=== PATIENT | female | born 1965 | race Caucasian/White ===

== ENCOUNTER → 2016-07-11 | Outpatient (CLI) | payer OTHER | LOC: RAD 14:14 | PROVIDERS: ATTEND Internal Medicine Gastroenterology | DX: R14.0 Abdominal distension (gaseous) (principal); R10.11 Right upper quadrant pain | CPT/HCPCS: 74177; 82565 ==

== ENCOUNTER 2019-01-11 13:52 | Day surgery (SDC) | payer OTHER ==
[2018-12-31 10:12] LABS: ABSOLUTE LYMPHOCYTES (AUTO) 1.6 10^3/uL (0.5-4.7); ABSOLUTE MONOCYTES (AUTO) 0.3 10^3/uL (0.1-1.4); ABSOLUTE NEUT (AUTO) 3.2 10^3/uL (1.7-8.2); BASOPHILS % (AUTO) 0.6 % (0-2); EOSINOPHILS % (AUTO) 0.8 % (0-6); HEMATOCRIT 34.7 % (36.0-47.0); HEMOGLOBIN 11.5 g/dL (12.0-15.5); MEAN CORPUSCULAR HEMOGLOBIN 27.5 pg (27.0-33.4); MEAN CORPUSCULAR HGB CONC 33.2 g/dL (32.0-36.0); MEAN CORPUSCULAR VOLUME 83 fl (80-97); MONOCYTES % (AUTO) 6.2 % (3-13); PLATELET COUNT 170 10^3/uL (150-450); RED BLOOD COUNT 4.19 10^6/uL (3.72-5.28); RED CELL DISTRIBUTION WIDTH 16.2 % (11.5-14.0); SEGMENTED NEUTROPHILS % (AUTO) 61.4 % (42-78); TOTAL CELLS COUNTED % (AUTO) 100 %; WHITE BLOOD COUNT 5.2 10^3/uL (4.0-10.5)
[2018-12-31 10:30] LABS: ANION GAP 11 (5-19); BLOOD UREA NITROGEN 22 mg/dL (7-20); CALCIUM 9.7 mg/dL (8.4-10.2); CARBON DIOXIDE 23 mmol/L (22-30); CHLORIDE 107 mmol/L (98-107); GLUCOSE 77 mg/dL (75-110)
[~2019-01-11 13:52] MED LIST: CEFAZOLIN SODIUM 2 GM in DEXTROSE 5%-WATER 100 ML IV PRN; DEXAMETHASONE SOD PHOSPHATE INJ 4 MG/1 ML VIAL ONE; FENTANYL CITRATE INJ/PF 100 MCG/2 ML AMPUL ONE; MIDAZOLAM 2 MG/2 ML INJ ONE; ONDANSETRON HCL INJ/PF 4 MG/2 ML SDV ONE; PROPOFOL INJ 200 MG/20 ML VIAL IV ONE
[2019-01-11] MEDS ORDERED: BUPIVACAINE HCL 0.5 % INJ/PF 30 ML SDV ONE (16:03)
[2019-01-11] MEDS ORDERED: LIDOCAINE 1% INJ-PF (10 MG/ML) 30 ML SDV ONE (16:03)
[2019-01-11] MEDS ORDERED: RINGERS SOLUTION,LACTATED 1,000 ML IV ONE (16:30)
[2019-01-11] MEDS ORDERED: FENTANYL CITRATE INJ/PF 100 MCG/2 ML AMPUL ONE ×3 (16:36→18:05)
[2019-01-11] MEDS ORDERED: MIDAZOLAM 2 MG/2 ML INJ ONE (16:36)
[2019-01-11] MEDS ORDERED: PROPOFOL INJ 200 MG/20 ML VIAL IV ONE (16:36)
[2019-01-11] MEDS ORDERED: LIDOCAINE 0.5% INJ-PF (5 MG/ML) 50 ML SDV ONE (16:37)
[2019-01-11] MEDS ORDERED: LIDOCAINE 1% INJ (10 MG/ML) 10 ML MDV INJ ONE (17:27)
[2019-01-11] MEDS ORDERED: FENTANYL CITRATE INJ/PF 100 MCG/2 ML AMPUL IV PRN ×3 (17:34)
[2019-01-11] MEDS ORDERED: OXYCODONE-ACETAMINOPHEN 5-325 MG TABLET PO PRN ×3 (17:34→17:58)
[2019-01-11] MEDS ORDERED: DIPHENHYDRAMINE HCL 50 MG/ML VIAL IV PRN (17:34)
[2019-01-11] MEDS ORDERED: PROMETHAZINE HCL INJ 25 MG/1 ML VIAL IV PRN ×2 (17:34)
[2019-01-11] MEDS ORDERED: MEPERIDINE HCL/PF INJ 25 MG/1 ML DISP.SYRIN IV PRN (17:34)
[2019-01-11] MEDS ORDERED: ONDANSETRON HCL INJ/PF 4 MG/2 ML SDV IV PRN ×2 (17:34→17:58)
[2019-01-11] MEDS ORDERED: MORPHINE SULFATE 10 MG/ML INJ IV PRN (17:34)
--- NOTE | 2019-01-11 17:58 | Discharge Summary ---
Discharge Summary (SDC) - Discharge Final Diagnosis: Right wrist ganglion cyst Date of Surgery: 01/11/19 Discharge Date: 01/11/19 Condition: Good Treatment or Instructions: Schedule Follow Up w/ Dr. Sebastien Coates @ [facility] for Surgery to be seen in 10-14 days or as scheduled [place]: [place]: [place]: Ice and elevate Keep splint clean/dry/intact, do not remove. If your fingers become numb please unwrap the [place] wrap but leave the splint in place, if the sensation does not return within 30 minutes please return to the emergency department. May begin finger range of motion attempting to make full fist. Please use ibuprofen (Motrin or Advil) 600-800 mg every 8 hours as needed for pain or fever DO NOT TAKE w/ TORADOL may use once TORADOL complete. You may also use acetaminophen (Tylenol) 1000 mg every 4-6 hours as needed for pain or fever. Please be aware that many medications contain acetaminophen, do not exceed a total of 1000 mg of acetaminophen every 6 hours. If ibuprofen and acetaminophen are not sufficient for your pain you may take the Percocet/[place]. Please be aware that the Percocet/[place] does contain Tylenol. Stool softener of choice when on pain medication. USE OF MRLZ-MCL-DGEYAYE IBUPROFEN: Ibuprofen (Advil, Nuprin, Medipren, Motrin IB) is a medication for fever and pain control. In addition, it has anti- inflammatory effects which may be beneficial, especially in the treatment of injuries. It's best to take ibuprofen with food. Persons with ulcer disease or allergy to aspirin should notify their physician of this before taking ibuprofen. Ibuprofen can be given every four to six hours, for a total of four doses daily. Age Pain or fever dose Antiinflammatory dose 6-8 yr 200 mg (1 tab) 200 mg (1 tab) 9-11 yr 200 mg (1 tab) 200-400 mg (1-2 tab) 11-14 yr 200-400 mg (1-2 tab) 400 mg (2 tab) 15-adult 400 mg (2 tab) 600 mg (3 tab) ORAL NARCOTIC MEDICATION: You have been given a prescription for pain control. This medication is a narcotic. It's best taken with food, as nausea can result if taken on an empty stomach. Don't operate machinery or drive within six hours of taking this medication. Do not combine this medicine with alcohol, or with any medication which can cause sedation (such as cold tablets or sleeping pills) unless you get permission from the physician. Narcotics tend to cause constipation. If possible, drink plenty of fluids and eat a diet high in fiber and fruits. Please be aware that prescription narcotics also have the potential for abuse. People become addicted to these medications because of the general sense of wellbeing that they induce. This feeling along with a significant reduction in tension, anxiety, and aggression provides a stimulating seductive quality to these drugs. Once your pain is under control, we encourage you to discard your unused narcotics. Prescriptions: Oxycodone HCl/Acetaminophen [Percocet 5-325 mg Tablet] 1 tab PO Q6 PRN #15 tab PRN Reason: Referrals: MERCEDES HAMPTON MD [Primary Care Provider] - Discharge Diet: As Tolerated Respiratory Treatments at Home: Deep Breathing/Coughing, Incentive Spirometer Discharge Activity: No Lifting Over 10 Pounds, No Lifting/Push/Pulling Report the Following to Your Physician Immediately: Fever over 101 Degrees, Unusual Bleeding, Redness, Swelling, Warmth
--- NOTE | 2019-01-11 18:00 | Operative Report ---
Operative Report DATE OF SURGERY: 01/11/19 PREOPERATIVE DIAGNOSIS: Left wrist volar ganglion POSTOPERATIVE DIAGNOSIS: Same OPERATION: Excision left wrist volar ganglion SURGEON: IVAN DELEON ANESTHESIA: LMAC COMPLICATIONS: None ESTIMATED BLOOD LOSS: Minimal PROCEDURE: Indication for above procedure: 53-year-old female with a volar ganglion cyst of her left wrist. We discussed findings on physical examination treatment options at that point decision was made to proceed with operative intervention. Risk and benefits were explained patient verbalized understanding consented for surgical procedure. Procedure In Detail: Patient was seen and evaluated in the preoperative holding area. The LEFT upper extremity was initialized and marked. Patient received 2g of Ancef IV for bacterial prophylaxis. Patient was taken back to the operative room where transferred to the operative table and placed under anesthesia. Once they were adequately anesthetized a nonsterile tourniquet was placed on the upper extremity. A surgical team debriefing was performed ensuring all instrumentation was available, the surgical procedure was discussed with possible concerns reviewed. 10 cc of 1% lidocaine with injected. The upper extremity was prepped with chlorhexidine and alcohol and draped in a sterile fashion. A timeout was done identifying correct patient, procedure and extremity everyone in attendance agree with this and verbalized no concerns. The extremity was elevated the tourniquet was inflated to 250 mmHg. Longitudinal skin incision was made along the volar-radial aspect of the wrist. Blunt dissection was performed meticulous dissection of the radial artery was undertaken and the radial artery was retracted. After retraction of the radial artery deep cyst was noted ending from the STT joint volarly deep to the pronator quadratus musculature. The cyst was isolated proximally distally and removed down to its root. The capsular tissue was debrided and root of the cyst coagulated with bipolar cautery. Wound was then copiously irrigated with normal saline. Tourniquet was deflated patient had intact radial artery with normal skin turgor and capillary refill. Any peripheral bleeding was controlled with bipolar cautery until the wound was dry. Skin was closed with running subcuticular 4-0 Monocryl reinforced with Dermabond Steri-Strips. Patient was placed in a volar resting splint. Sponge counts, instrument counts, needle counts were correct. Patient was then awoken from anesthesia. Transferred from the operating room table to the operating room stretcher. There was no intraoperative complications patient tolerated procedure well stable to PACU. Postop plan: Patient follow-up the office in 2 weeks at which point we will discuss results and begin range of motion exercises.
[2019-01-11] MEDS ORDERED: OXYCODONE-ACETAMINOPHEN 5-325 MG TABLET ONE (18:32)
--- NOTE | 2019-01-11 19:09 | EKG REPORT ---
SEVERITY:- NORMAL ECG - SINUS RHYTHM : Confirmed by: Lion Antunez MD 11-Jan-2019 19:08:48
[2019-01-11 19:48] VITALS: BP 150/80
== END 2019-01-11 19:35 | disposition home or self-care (01) ==
LOC: OROUT 13:52
PROVIDERS: ATTEND Orthopaedic Surgery
DX: M67.431 Ganglion, right wrist (principal); Z79.899 Other long term (current) drug therapy; Z79.51 Long term (current) use of inhaled steroids; F17.210 Nicotine dependence, cigarettes, uncomplicated; I10 Essential (primary) hypertension
CPT/HCPCS: 36415; 85025; 80048; 88304 ×2; 93005; 93010; 25111; J2250; J3490 ×3; J0690; J3010; J7060; J2704; J1100; J2405

== ENCOUNTER → 2019-10-26 | Outpatient (CLI) | payer OTHER ==
--- NOTE | 2019-10-26 15:14 | RADIOLOGY REPORT (SQ) ---
EXAM DESCRIPTION: SMALL BOWEL SERIES IMAGES COMPLETED DATE/TIME: 10/26/2019 10:34 am REASON FOR STUDY: E61.1 IRON DEFICIENCY E61.1 IRON DEFICIENCY COMPARISON: None. FLUOROSCOPY TIME: 1.0 minutes 2 images submitted to PACS. LIMITATIONS: None. PROCEDURE: Initial gear changer image of abdomen acquired, followed by administration of oral contrast. Se rial radiographic images acquired. Fluoroscopic images recorded of the terminal ileum and other mike cated areas. All images stored on PACS. 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 No abnormal calcifications. Soft tissue planes normal. STOMACH: No significant reflux. Normal distention without abnormality. DUODENUM: Normal mucosal pattern with adequate distention. No displacement or obstruction. JEJUNUM: Normal mucosal pattern. No dilatation, segmentation, strictures or masses. ILEUM: Normal mucosal pattern. No dilatation, segmentation, strictures or masses. TERMINAL ILEUM AND ILEO-CECAL VALVE: Normal mucosal pattern without "cobble-stoning" or stricture. N ormal compression. PROXIMAL COLON: Incompletely imaged. No abnormality. OTHER: No other significant finding. IMPRESSION: NORMAL SMALL BOWEL EXAM. COMMENT: None Quality ID [id number]: Final reports for procedures using fluoroscopy that document radiation exposure mike traci, or exposure time and number of fluorographic images (if radiation exposure indices are not avail able) TECHNICAL DOCUMENTATION: JOB ID: [id number] 2010 [employer]- All Rights Reserved Reading location - IP/workstation name: [email or web address] [id number]
== END ==
LOC: RAD 08:33
PROVIDERS: ATTEND Internal Medicine Gastroenterology
DX: E61.1 Iron deficiency (principal)
CPT/HCPCS: 74250

== ENCOUNTER → 2019-12-13 | Outpatient (CLI) | payer OTHER ==
[2019-12-13 10:12] LABS: ABSOLUTE LYMPHOCYTES (AUTO) 2.3 10^3/uL (0.5-4.7); ABSOLUTE MONOCYTES (AUTO) 0.4 10^3/uL (0.1-1.4); ABSOLUTE NEUT (AUTO) 3.8 10^3/uL (1.7-8.2); BASOPHILS % (AUTO) 0.5 % (0-2); EOSINOPHILS % (AUTO) 0.7 % (0-6); HEMATOCRIT 39.1 % (36.0-47.0); HEMOGLOBIN 13.5 g/dL (12.0-15.5); LYMPHOCYTES % (AUTO) 34.5 % (13-45); MEAN CORPUSCULAR HGB CONC 34.4 g/dL (32.0-36.0); MEAN CORPUSCULAR VOLUME 93 fl (80-97); PLATELET COUNT 188 10^3/uL (150-450); RED BLOOD COUNT 4.21 10^6/uL (3.72-5.28); RED CELL DISTRIBUTION WIDTH 13.7 % (11.5-14.0); SEGMENTED NEUTROPHILS % (AUTO) 58.3 % (42-78); TOTAL CELLS COUNTED % (AUTO) 100 %; WHITE BLOOD COUNT 6.6 10^3/uL (4.0-10.5)
--- NOTE | 2019-12-13 10:13 | EKG REPORT ---
SEVERITY:- NORMAL ECG - SINUS RHYTHM : Confirmed by: Katherine Yu MD 13-Dec-2019 10:13:16
[2019-12-13 10:14] LABS: APPEARANCE,URINE CLEAR; BILIRUBIN,URINE NEGATIVE (NEGATIVE); COLOR,URINE YELLOW; GLUCOSE, URINE NEGATIVE (NEGATIVE); KETONES,URINE NEGATIVE (NEGATIVE); LEUKOCYTE ESTERASE,URINE NEGATIVE (NEGATIVE); NITRITE,URINE NEGATIVE (NEGATIVE); PROTEIN,URINE NEGATIVE (NEGATIVE); URINE SPECIFIC GRAVITY 1.006; UROBILINOGEN,URINE NEGATIVE mg/dL (<2.0)
[2019-12-13 10:16] LABS: ABSOLUTE LYMPHOCYTES (AUTO) 2.3 10^3/uL (0.5-4.7); ABSOLUTE MONOCYTES (AUTO) 0.4 10^3/uL (0.1-1.4); ABSOLUTE NEUT (AUTO) 3.8 10^3/uL (1.7-8.2); BASOPHILS % (AUTO) 0.5 % (0-2); EOSINOPHILS % (AUTO) 0.7 % (0-6); HEMATOCRIT 39.1 % (36.0-47.0); HEMOGLOBIN 13.5 g/dL (12.0-15.5); LYMPHOCYTES % (AUTO) 34.5 % (13-45); MEAN CORPUSCULAR HGB CONC 34.4 g/dL (32.0-36.0); MEAN CORPUSCULAR VOLUME 93 fl (80-97); PLATELET COUNT 188 10^3/uL (150-450); RED BLOOD COUNT 4.21 10^6/uL (3.72-5.28); RED CELL DISTRIBUTION WIDTH 13.7 % (11.5-14.0); SEGMENTED NEUTROPHILS % (AUTO) 58.3 % (42-78); TOTAL CELLS COUNTED % (AUTO) 100 %; WHITE BLOOD COUNT 6.6 10^3/uL (4.0-10.5)
[2019-12-13 10:36] LABS: IRON(TIBC) 75.6 ug/dL (37-170)
--- NOTE | 2019-12-13 10:41 | RADIOLOGY REPORT (SQ) ---
EXAM DESCRIPTION: CHEST PA/LATERAL IMAGES COMPLETED DATE/TIME: 12/13/2019 9:40 am REASON FOR STUDY: PRE-OP COMPARISON: None. EXAM PARAMETERS: NUMBER OF VIEWS: two views TECHNIQUE: Digital Frontal and Lateral radiographic views of the chest acquired. RADIATION DOSE: NA LIMITATIONS: none FINDINGS: LUNGS AND PLEURA: No opacities, masses or pneumothorax. No pleural effusion. MEDIASTINUM AND HILAR STRUCTURES: No masses or contour abnormalities. HEART AND VASCULAR STRUCTURES: Heart normal size. No evidence for failure. BONES: No acute findings. HARDWARE: None in the chest. OTHER: No other significant finding. IMPRESSION: NO SIGNIFICANT RADIOGRAPHIC FINDING IN THE CHEST. TECHNICAL DOCUMENTATION: JOB ID: [id number] 2010 [employer]- All Rights Reserved Reading location - IP/workstation name: [email or web address]
[2019-12-13 10:42] LABS: ANION GAP 10 (5-19); BLOOD UREA NITROGEN 16 mg/dL (7-20); CALCIUM 9.9 mg/dL (8.4-10.2); CARBON DIOXIDE 24 mmol/L (22-30); CHLORIDE 102 mmol/L (98-107); GLUCOSE 97 mg/dL (75-110); POTASSIUM 4.2 mmol/L (3.6-5.0)
== END ==
LOC: OD 08:58
PROVIDERS: ATTEND Orthopaedic Surgery
DX: Z01.812 Encounter for preprocedural laboratory examination (principal); Z01.811 Encounter for preprocedural respiratory examination; Z01.810 Encounter for preprocedural cardiovascular examination; E61.1 Iron deficiency; M17.11 Unilateral primary osteoarthritis, right knee
CPT/HCPCS: 36415; 71046; 80048; 81001; 82728; 83540; 83550; 85025; 93005; 93010

== ENCOUNTER 2020-01-09 08:09 | Inpatient (IN) | payer OTHER ==
[2020-01-09] MEDS ORDERED: VANCOMYCIN HCL 1,000 MG in DEXTROSE 5%-WATER 250 ML IV PRN (08:23)
[2020-01-09] MEDS ORDERED: CEFAZOLIN INJ 1 GM VIAL IV PRN (08:25)
[2020-01-09] MEDS ORDERED: OXYCODONE HCL SR 10 MG TABLET PO ONE (08:36)
[2020-01-09] MEDS ORDERED: PANTOPRAZOLE SODIUM 20 MG TABLET.DR PO ONE (08:41)
[2020-01-09] MEDS ORDERED: CEFAZOLIN INJ 1 GM VIAL ONE (09:16)
[2020-01-09] MEDS ORDERED: FENTANYL CITRATE INJ/PF 100 MCG/2 ML AMPUL ONE ×2 (09:16→09:50)
[2020-01-09] MEDS ORDERED: LIDOCAINE 2% INJ-PF (20 MG/ML) 10 ML AMPUL ONE (09:16)
[2020-01-09] MEDS ORDERED: TRANEXAMIC ACID INJ/PF 1,000 MG/10 ML SDV ONE (09:17)
[2020-01-09] MEDS ORDERED: EPHEDRINE SULFATE INJ 50 MG/1 ML AMPULE ONE (09:17)
[2020-01-09] MEDS ORDERED: PROPOFOL INJ 200 MG/20 ML VIAL IV ONE (09:17)
[2020-01-09] MEDS ORDERED: MIDAZOLAM 2 MG/2 ML INJ ONE ×2 (09:17→09:50)
[2020-01-09] MEDS ORDERED: ONDANSETRON HCL INJ/PF 4 MG/2 ML SDV ONE (09:17)
[2020-01-09] MEDS ORDERED: ROPIVACAINE HCL 0.5% INJ/PF (5 MG/1 ML) 30 ML SDV ONE (09:50)
[2020-01-09] MEDS ORDERED: IBUPROFEN 800 MG in NORMAL SALINE 250 ML IV PRN (11:52)
[2020-01-09] MEDS ORDERED: MEPERIDINE HCL/PF INJ 25 MG/1 ML DISP.SYRIN IV PRN (12:15)
[2020-01-09] MEDS ORDERED: ONDANSETRON HCL INJ/PF 4 MG/2 ML SDV IV PRN ×2 (12:15→12:45)
[2020-01-09] MEDS ORDERED: FENTANYL CITRATE INJ/PF 100 MCG/2 ML AMPUL IV PRN ×3 (12:15)
[2020-01-09] MEDS ORDERED: PROMETHAZINE HCL INJ 25 MG/1 ML VIAL IV PRN ×2 (12:15)
[2020-01-09] MEDS ORDERED: DIPHENHYDRAMINE HCL 50 MG/ML VIAL IV PRN ×2 (12:15→12:45)
[2020-01-09] MEDS ORDERED: TRANEXAMIC ACID INJ/PF 1,000 MG/10 ML SDV IV ONE (12:45)
[2020-01-09] MEDS ORDERED: ACETAMINOPHEN 325 MG TABLET PO PRN (12:45)
[2020-01-09] MEDS ORDERED: ZOLPIDEM TARTRATE 5 MG TABLET PO PRN (12:45)
[2020-01-09] MEDS ORDERED: MAG HYDROX/AL HYDROX/SIMETH SUSP 30 ML UDCUP PO PRN (12:45)
[2020-01-09] MEDS ORDERED: ONDANSETRON 4 MG TAB.RAPDIS PO PRN (12:45)
--- NOTE | 2020-01-09 12:50 | Operative Report ---
Operative Report DATE OF SURGERY: 01/09/20 PREOPERATIVE DIAGNOSIS: Right knee arthritis OPERATION: Right knee arthroplasty SURGEON: ASIM GONSALES ANESTHESIA: Spinal TISSUE REMOVED OR ALTERED: Bone to pathology ESTIMATED BLOOD LOSS: 75 PROCEDURE: Implants used: Femur: [place] triathlon size 4 CR uncemented femur Tibia: 4 uncemented tibia Tibial liner: 9 mm CS insert Patella: 32 mm uncemented patella Procedure with the patient supine on the operating table the right the limb is prepped and draped in a sterile fashion. The limb was elevated for exsanguination and the tourniquet inflated to 280 torr. A standard midline median parapatellar approach the knee is taken. Access is gained to the femoral canal through the intercondylar notch. Intramedullary alignment instrumentation used to resect 10 mm of distal femur in 5 of valgus. Sizing guide indicated a size 4 femur. Appropriate cutting jig is then used to fashion anterior posterior and chamfer cuts. A trial reduction femurs performed and this is judged to be adequate. Attention was next turned to the tibia. Using an extra medullary alignment system 9 millimeters was resected off the lateral tibial plateau. This is sized to a size 4 tibia. A trial reduction was now performed with a 4 femur and a 4 tibia using a 9 millimeters spacer. It is full extension and central patellofemoral tracking. The articular surface the patella was next resected using an oscillating saw. All trial implants were removed. The above implants are impacted into position and subsequently the wound was denise here with pulse lavage using normal saline containing Betadine. The tourniquet was deflated hemostasis obtained the wound is then closed in layers using interrupted Vicryl followed by alexandro. A sterile compressive dressing was applied and the patient returned to recovery room in satisfactory condition.
--- NOTE | 2020-01-09 13:36 | RADIOLOGY REPORT (SQ) ---
EXAM DESCRIPTION: KNEE RIGHT 2 VIEWS IMAGES COMPLETED DATE/TIME: 01/09/2020 1:28 pm REASON FOR STUDY: Post OP -Long Cassette in PACU M17.11 UNILATERAL PRIMARY OSTEOARTHRITIS, RIGHT KN EE COMPARISON: None. NUMBER OF VIEWS: Two view(s). TECHNIQUE: Digital radiographic images of the right knee post-procedure. LIMITATIONS: None. FINDINGS: BONES: No worrisome or unexpected findings post-procedure. DEVICE: Total knee arthroplasty. SOFT TISSUES: No worrisome findings. Expected postoperative soft tissue changes. IMPRESSION: 1. SATISFACTORY POSTOPERATIVE RIGHT KNEE. TECHNICAL DOCUMENTATION: JOB ID: [id number] 2010 [employer]- All Rights Reserved Reading location - IP/workstation name: [email or web address]
[2020-01-09] MEDS: RINGERS SOLUTION,LACTATED 1,000 ML IV PRN (17:06)
[2020-01-09] MEDS: OXYCODONE HCL IR 5 MG TABLET PO PRN (17:06)
[2020-01-09] MEDS: IBUPROFEN 800 MG in NORMAL SALINE 250 ML IV SCH (17:53)
[2020-01-09] MEDS: SENNOSIDES/DOCUSATE 8.6-50 MG 1 EACH TABLET PO SCH (17:54)
[2020-01-09] MEDS: ROPINIROLE HCL 2 MG TABLET PO SCH (17:54)
[2020-01-09] MEDS ORDERED: ROPINIROLE HCL 2 MG PO SCH (18:00)
[2020-01-09] MEDS: PREGABALIN 75 MG CAPSULE PO SCH (21:14)
[2020-01-09] MEDS: OXYCODONE HCL SR 10 MG TABLET PO SCH (21:14)
[2020-01-09] MEDS ORDERED: AMITRIPTYLINE HCL 25 MG TABLET PO SCH (22:00)
[2020-01-09] MEDS ORDERED: ATORVASTATIN CALCIUM 10 MG TABLET PO SCH (22:00)
[2020-01-10] MEDS: OXYCODONE HCL IR 5 MG TABLET PO PRN ×2 (00:01→08:45)
[2020-01-10] MEDS: RINGERS SOLUTION,LACTATED 1,000 ML IV PRN (00:03)
[2020-01-10] MEDS ORDERED: VANCOMYCIN HCL 1,000 MG in DEXTROSE 5%-WATER 250 ML IV ONE (00:45)
[2020-01-10] MEDS: IBUPROFEN 800 MG in NORMAL SALINE 250 ML IV SCH ×2 (01:30→11:35)
[2020-01-10] MEDS ORDERED: PANTOPRAZOLE SODIUM 40 MG TABLET.DR PO SCH (06:00)
[2020-01-10 06:02] LABS: HEMATOCRIT 31.9 % (36.0-47.0); HEMOGLOBIN 11.2 g/dL (12.0-15.5); MEAN CORPUSCULAR HEMOGLOBIN 32.7 pg (27.0-33.4); MEAN CORPUSCULAR HGB CONC 35.1 g/dL (32.0-36.0); MEAN CORPUSCULAR VOLUME 93 fl (80-97); PLATELET COUNT 128 10^3/uL (150-450); RED BLOOD COUNT 3.43 10^6/uL (3.72-5.28); RED CELL DISTRIBUTION WIDTH 13.3 % (11.5-14.0); WHITE BLOOD COUNT 7.1 10^3/uL (4.0-10.5)
[2020-01-10 06:21] LABS: ANION GAP 6 (5-19); BLOOD UREA NITROGEN 12 mg/dL (7-20); CARBON DIOXIDE 24 mmol/L (22-30); CHLORIDE 106 mmol/L (98-107); GLUCOSE 124 mg/dL (75-110); POTASSIUM 3.9 mmol/L (3.6-5.0)
--- NOTE | 2020-01-10 07:21 | PDOC DISCHARGE SUMMARY ---
Impression - Admit/DC Date/PCP Admission Date/Primary Care Provider: 01/09/20 08:09 MERCEDES HAMPTON MD Discharge Date: 01/10/20 - Additional Information Resuscitation Status: Full Code Discharge Diet: Regular Discharge Activity: Balance Activity w/Rest, No Driving, No tub bath Referrals: ASIM GONSALES MD [ACTIVE STAFF] - 01/24/20 8:15 am Home Medications: Lisinopril 20 mg PO DAILY 12/31/18 Sertraline HCl [Zoloft] 100 mg PO DAILY 12/31/18 Amitriptyline HCl [Elavil 25 mg Tablet] 25 mg PO QHS 01/09/20 Atorvastatin Calcium [Lipitor 10 mg Tablet] 10 mg PO QHS 01/09/20 Celecoxib [Celebrex 100 mg Capsule] 100 mg PO DAILY 01/09/20 Pantoprazole Sodium [Protonix [address] Tablet] 40 mg PO DAILY 01/09/20 Ropinirole HCl [Requip 2 Mg Tablet] 6 mg PO QHS 01/09/20 History of Present Illiness History of Present Illness: MARKO BARONE is a 54 year old female 54-year-old white female with progressive right knee pain and functional disability second osteoarthritis. Patient is admitted for an elective right knee arthroplasty. Hospital Course Hospital Course: Patient is admitted through the operating where she undergoes uncomplicated right knee arthroplasty. She was returned to the floor in satisfactory condition. She is seen by physical therapy on the day of surgery with limited progress and ongoing complaints of pain. Impressive dressings removed in the right lower extremity and first postoperative morning. Underlying OpSite dressing is clean dry and intact. Physical Exam Vital Signs: Temp Pulse Resp BP Pulse Ox 37.1 C 85 18 130/67 H 95 01/10/20 01:39 01/10/20 01:39 01/10/20 01:39 01/10/20 01:39 01/10/20 01:39 Intake & Output 01/09/20 01/10/20 01/11/20 06:59 06:59 06:59 Intake Total 3330 Output Total 50 Balance 3280 Weight 91.4 kg General appearance: PRESENT: mild distress, well-developed, well-nourished Head exam: PRESENT: normocephalic Respiratory exam: PRESENT: unlabored Cardiovascular exam: PRESENT: RRR Pulses: PRESENT: +1 pedal pulses bilateral Vascular exam: PRESENT: normal capillary refill GI/Abdominal exam: PRESENT: soft Rectal exam: PRESENT: deferred Musculoskeletal exam: PRESENT: other - Lower extremity OpSite dressing is clean dry and intact. Minimal pedal edema. Distal neurovascular examination is intact. Results Laboratory Results: WBC 7.1 10^3/uL (4.0-10.5) 01/10/20 04:47 RBC 3.43 10^6/uL (3.72-5.28) L 01/10/20 04:47 Hgb 11.2 g/dL (12.0-15.5) L 01/10/20 04:47 Hct 31.9 % (36.0-47.0) L 01/10/20 04:47 MCV 93 fl (80-97) 01/10/20 04:47 MCH 32.7 pg (27.0-33.4) 01/10/20 04:47 MCHC 35.1 g/dL (32.0-36.0) 01/10/20 04:47 RDW 13.3 % (11.5-14.0) 01/10/20 04:47 Plt Count 128 10^3/uL (150-450) L 01/10/20 04:47 Sodium 135.7 mmol/L (137-145) L 01/10/20 04:47 Potassium 3.9 mmol/L (3.6-5.0) 01/10/20 04:47 Chloride 106 mmol/L (98-107) 01/10/20 04:47 Carbon Dioxide 24 mmol/L (22-30) 01/10/20 04:47 Anion Gap 6 (5-19) 01/10/20 04:47 BUN 12 mg/dL (7-20) 01/10/20 04:47 Creatinine 0.69 mg/dL (0.52-1.25) 01/10/20 04:47 Est GFR ( Amer) > 60 (>60) 01/10/20 04:47 Est GFR (MDRD) Non-Af > 60 (>60) 01/10/20 04:47 Glucose 124 mg/dL (75-110) H 01/10/20 04:47 Calcium 9.0 mg/dL (8.4-10.2) 01/10/20 04:47 COVID-19 Source NASOPHARYNGEAL 01/05/20 12:10 COVID-19 (AMANUEL) NOT DETECTED 01/05/20 12:10 Impressions: Knee X-Ray 01/09/20 12:47 IMPRESSION: 1. SATISFACTORY POSTOPERATIVE RIGHT KNEE. Plan Plan of Treatment: Patient to be discharged home on a weightbearing as tolerated basis with home health services and DME. Follow-up Dr. Gonsales and [facility] for surgery in 2 weeks for staple removal. Stroke Is this a Stroke Patient?: No Stroke Pt being discharged on Anti-thrombolytic therapy?: Yes Acute Heart Failure - Is this a Heart Failure Patient?: No
[2020-01-10] MEDS ORDERED: PRENATAL VITAMIN W DHA CAPSULE PO SCH (10:00)
[2020-01-10] MEDS ORDERED: (PENDING PHARMACY ID) (Lisinopril [Lisinopril] 1 TAB) PO SCH (10:00)
[2020-01-10] MEDS ORDERED: (PENDING PHARMACY ID) (Sertraline Hcl [Zoloft] 1 TAB) PO SCH (10:00)
[2020-01-10] MEDS ORDERED: LISINOPRIL 10 MG TABLET PO SCH (10:00)
[2020-01-10] MEDS ORDERED: SERTRALINE HCL 50 MG TABLET PO SCH (10:00)
[2020-01-10] MEDS: OXYCODONE HCL SR 10 MG TABLET PO SCH (10:12)
[2020-01-10] MEDS: ROPINIROLE HCL 2 MG TABLET PO SCH (10:13)
[2020-01-10] MEDS: PREGABALIN 75 MG CAPSULE PO SCH (10:13)
[2020-01-10] MEDS: SENNOSIDES/DOCUSATE 8.6-50 MG 1 EACH TABLET PO SCH (10:13)
[2020-01-10 12:04] VITALS: BP 115/73
== END 2020-01-10 13:00 | disposition home health service (06) | DRG 470 ==
LOC: INOR 08:09 → 4N 14:17
PROVIDERS: ADMIT Orthopaedic Surgery; ATTEND Orthopaedic Surgery
PROC: 0SRC0JA Replacement of Right Knee Joint with Synthetic Substitute, Uncemented, Open Approach (ICD-10-PCS; principal; 2020-01-09 10:30)
DX: M17.11 Unilateral primary osteoarthritis, right knee (principal); I10 Essential (primary) hypertension; F32.9 Major depressive disorder, single episode, unspecified; F17.210 Nicotine dependence, cigarettes, uncomplicated; Z11.59 Encounter for screening for other viral diseases
CPT/HCPCS: 01402; 36415; 64447; 76942; 80048; 85027; 87635; 88305; 88311; 94799; C1776; C9803; J0690; J1741; J2250; J2405; J2704; J2795; J3010; J3370; J3490; J7050; J7060; J7120

== ENCOUNTER → 2020-03-06 | Outpatient (CLI) | payer OTHER ==
[2020-03-06 10:39] LABS: HEMATOCRIT 35.2 % (36.0-47.0); HEMOGLOBIN 12.1 g/dL (12.0-15.5); MEAN CORPUSCULAR HEMOGLOBIN 31.7 pg (27.0-33.4); MEAN CORPUSCULAR HGB CONC 34.3 g/dL (32.0-36.0); MEAN CORPUSCULAR VOLUME 92 fl (80-97); PLATELET COUNT 198 10^3/uL (150-450); RED BLOOD COUNT 3.81 10^6/uL (3.72-5.28); RED CELL DISTRIBUTION WIDTH 13.8 % (11.5-14.0); WHITE BLOOD COUNT 6.8 10^3/uL (4.0-10.5)
[2020-03-06 11:00] LABS: ALBUMIN 4.5 g/dL (3.5-5.0); ALKALINE PHOSPHATASE 105 U/L (38-126); ANION GAP 11 (5-19); ASPARTATE AMINO TRANSFERASE 35 U/L (14-36); BILIRUBIN,DIRECT 0.5 mg/dL (0.0-0.4); BILIRUBIN,TOTAL 0.5 mg/dL (0.2-1.3); BLOOD UREA NITROGEN 10 mg/dL (7-20); CALCIUM 10.1 mg/dL (8.4-10.2); CARBON DIOXIDE 21 mmol/L (22-30); CHLORIDE 104 mmol/L (98-107); GLUCOSE 89 mg/dL (75-110); POTASSIUM 4.5 mmol/L (3.6-5.0); TOTAL PROTEIN 7.4 g/dL (6.3-8.2)
[2020-03-06 11:07] LABS: C-REACTIVE PROTEIN < 5.0 mg/L (<10.0)
[2020-03-06 11:16] LABS: ERYTHROCYTE SEDIMENTATION RATE 27 mm/hr (0-30)
== END ==
LOC: OD 09:21
PROVIDERS: ATTEND Orthopaedic Surgery
DX: M25.561 Pain in right knee (principal)
CPT/HCPCS: 36415; 80053; 85027; 85652; 86140